=== PATIENT | male | born 1960 | race Caucasian/White ===

== ENCOUNTER → 2025-04-05 07:27 | Outpatient (REF) | payer BC, SELFPAY | LOC: HWRCS 07:27 | PROVIDERS: ATTENDING PHYSICIAN Internal Medicine Cardiovascular Disease; FAMILY PHYSICIAN Family Medicine | DX: Z98.890 Other specified postprocedural states (principal); I51.7 Cardiomegaly | CPT/HCPCS: 93306 ==